=== PATIENT | male | born 1985 | race Caucasian/White ===

== ENCOUNTER 2019-10-18 11:14 | Emergency (ER) | payer MEDICAID ==
[~2019-10-18] VITALS: Ht 175.3 cm; Wt 72.7 kg
[2019-10-18] MEDS ORDERED: LIDOcaine 5% patch TP STA (11:45)
[2019-10-18] MEDS ORDERED: ibuprofen tablet 400 MG TABLET PO ONE (11:45)
[2019-10-18] MEDS ORDERED: CYCL-1 PO (12:15)
[2019-10-18] MEDS ORDERED: LIDO1ADH TOP (12:15)
[2019-10-18 12:27] VITALS: BP 113/74
== END 2019-10-18 12:30 | disposition home or self-care (01) ==
LOC: ER 11:15
DX: S39.012A Strain of muscle, fascia and tendon of lower back, initial encounter (principal); G89.29 Other chronic pain; F32.9 Major depressive disorder, single episode, unspecified; Z79.899 Other long term (current) drug therapy; V87.7XXA Person injured in collision between other specified motor vehicles (traffic), initial encounter; Y93.89 Activity, other specified; Y92.89 Other specified places as the place of occurrence of the external cause; Y99.8 Other external cause status
CPT/HCPCS: 72100; 99283